=== PATIENT | female | born 1965 | race Caucasian/White ===

== ENCOUNTER 2017-01-12 22:08 | Emergency (ER) | payer OTHER ==
[~2017-01-12] VITALS: Ht 167.6 cm; Wt 145.1 kg
[2017-01-12 22:15] VITALS: BP_SYST 144
== END 2017-01-12 23:00 | disposition left against medical advice (07) ==
LOC: SED 22:08
DX: R05 Cough (principal); R51 Headache; Z53.21 Procedure and treatment not carried out due to patient leaving prior to being seen by health care provider

== ENCOUNTER 2017-02-21 06:27 | Emergency (ER) | payer OTHER ==
[~2017-02-21] VITALS: Ht 170.2 cm; Wt 149.7 kg
[~2017-02-21 06:27] MED LIST: PHE25 PO; STADOL; [UNRECOGNIZED DRUG - CODE]
[2017-02-21 06:31] VITALS: BP_SYST 153
[2017-02-21 07:15] VITALS: BP_SYST 153
== END 2017-02-21 07:15 | disposition home or self-care (01) ==
LOC: SED 06:27
DX: G43.909 Migraine, unspecified, not intractable, without status migrainosus (principal); J40 Bronchitis, not specified as acute or chronic; Z88.5 Allergy status to narcotic agent
CPT/HCPCS: 99283

== ENCOUNTER 2017-03-03 00:49 | Emergency (ER) | payer OTHER ==
[~2017-03-03] VITALS: Ht 170.2 cm; Wt 149.7 kg
[2017-03-03 01:00] VITALS: BP 126/70; PULSE 61; RESP 18; TEMP 97.6; O2SAT 96
--- NOTE | 2017-03-03 01:40 | NUR ---
Placed in room H1 . Side rails up. Report given to FOREST Rosario.
--- NOTE | 2017-03-03 01:45 | NUR ---
Patient complains of cough x 1 week with migraine headaches. Pain 7/10. Lungs clear in all peraza . Pain 4/10. No other complaints/injuries per patient or as noted. Will continue to monitor.
--- NOTE | 2017-03-03 01:47 | NUR ---
ER at bedside examining patient.
[2017-03-03 02:12] VITALS: BP 126/70; PULSE 61; RESP 18; TEMP 97.6; O2SAT 96
--- NOTE | 2017-03-03 02:12 | NUR ---
Patient given written and verbal discharge instructions and verbalizes understanding. ER MD discussed with patient the results and treatment provided. Patient in stable condition. ID arm band removed. Rx of Zithromax, Prednisone and Butorphanol Tartate given. Patient educated on pain management and to follow up with PMD in 2-3 days. Pain Scale 0/10 Opportunity for questions provided and answered.
== END 2017-03-03 02:12 | disposition home or self-care (01) ==
LOC: SED 00:49
DX: Z76.0 Encounter for issue of repeat prescription (principal); J40 Bronchitis, not specified as acute or chronic; G44.209 Tension-type headache, unspecified, not intractable; Z88.5 Allergy status to narcotic agent; F17.210 Nicotine dependence, cigarettes, uncomplicated
CPT/HCPCS: 71010; 99283

== ENCOUNTER 2017-03-04 18:05 | Emergency (ER) | payer OTHER ==
[~2017-03-04] VITALS: Ht 170.2 cm; Wt 154.2 kg
[2017-03-04 18:11] VITALS: BP 132/83; PULSE 81; RESP 18; TEMP 97.6; O2SAT 96
--- NOTE | 2017-03-04 18:14 | NUR ---
Pt placed to ER bed 07, report given to FOREST Quintanilla.
--- NOTE | 2017-03-04 18:15 | NUR ---
PRESENTS WITH 1 WEEK HISTORY OF PRODUCTINE COUGH WITH WHITE WORSE AT NIGHT. WAS HERE 3 DAYS AGO AND SAW THE DOCTOR AND GIVEN STEROIDS WHICH SHE IS TAKING AT HOME. LUNGS CLEAR. NO FEVER. NO SOB OR PAIN WITH INSPIRATION.
--- NOTE | 2017-03-04 18:21 | NUR ---
PEYTON CASPER IN TO PAT CALLAWAY.
[2017-03-04 18:33] VITALS: O2SAT 96
[2017-03-04 18:37] VITALS: BP 120/70; PULSE 87; RESP 20; TEMP 98.6
--- NOTE | 2017-03-04 18:37 | NUR ---
Patient given written and verbal discharge instructions and verbalizes understanding. ER MD discussed with patient the results and treatment provided. Patient in stable condition. ID arm band removed. Rx of TESSALON PEARLES AND COUGH SYRUP given. Patient educated on pain management and to follow up with PMD. Pain Scale . Opportunity for questions provided and answered. PT DISCHARGED TO [facility]. Addendum: 03/04/17 at 1841 by SIMRANCCUPTA PAIN SCALE 0/10
== END 2017-03-04 18:37 | disposition home or self-care (01) ==
LOC: SED 18:05
DX: J40 Bronchitis, not specified as acute or chronic (principal); R03.0 Elevated blood-pressure reading, without diagnosis of hypertension; F17.200 Nicotine dependence, unspecified, uncomplicated; E66.9 Obesity, unspecified; Z68.43 Body mass index [BMI] 50.0-59.9, adult; Z71.6 Tobacco abuse counseling; Z88.5 Allergy status to narcotic agent
CPT/HCPCS: 99283

== ENCOUNTER 2017-12-28 16:44 | Emergency (ER) | payer OTHER ==
[~2017-12-28] VITALS: Ht 170.2 cm; Wt 149.7 kg
[2017-12-28 16:44] VITALS: BP_SYST 148
== END 2017-12-28 17:20 | disposition left against medical advice (07) ==
LOC: SED 16:44
DX: G43.909 Migraine, unspecified, not intractable, without status migrainosus (principal); M25.511 Pain in right shoulder; Z53.21 Procedure and treatment not carried out due to patient leaving prior to being seen by health care provider

== ENCOUNTER 2018-09-17 20:12 | Emergency (ER) | payer OTHER ==
[~2018-09-17] VITALS: Ht 170.2 cm; Wt 158.8 kg
[2018-09-17 20:30] VITALS: BP_SYST 130
[2018-09-17 20:55] VITALS: BP_SYST 130
== END 2018-09-17 20:55 | disposition left against medical advice (07) ==
LOC: SED 20:12
DX: G43.909 Migraine, unspecified, not intractable, without status migrainosus (principal); Z88.6 Allergy status to analgesic agent; Z79.899 Other long term (current) drug therapy; Z53.21 Procedure and treatment not carried out due to patient leaving prior to being seen by health care provider

== ENCOUNTER 2020-02-26 21:51 | Emergency (ER) | payer OTHER ==
[~2020-02-26] VITALS: Ht 170.2 cm; Wt 140.6 kg
[2020-02-26 22:25] VITALS: BP_SYST 118
[2020-02-26] MEDS ORDERED: AMOXICILLIN 500 MG CAPSULE PO ONE (23:45)
[2020-02-27 00:57] VITALS: BP_SYST 126
== END 2020-02-27 00:56 | disposition home or self-care (01) ==
LOC: SED 21:51
DX: G43.901 Migraine, unspecified, not intractable, with status migrainosus (principal); Z88.6 Allergy status to analgesic agent; Z79.899 Other long term (current) drug therapy
CPT/HCPCS: 99283

== ENCOUNTER 2020-06-18 20:26 | Emergency (ER) | payer OTHER ==
[~2020-06-18] VITALS: Ht 172.7 cm; Wt 104.3 kg
[~2020-06-18 20:26] MED LIST changes: +ASPI-524 PO; +IBUP-1017 PO; +NAPR-1174 PO
[2020-06-18 20:42] VITALS: BP_SYST 101
[2020-06-18 21:05] VITALS: BP_SYST 101
== END 2020-06-18 21:05 | disposition home or self-care (01) ==
LOC: SED 20:26
DX: G43.909 Migraine, unspecified, not intractable, without status migrainosus (principal); Z76.0 Encounter for issue of repeat prescription; Z88.6 Allergy status to analgesic agent; Z79.899 Other long term (current) drug therapy
CPT/HCPCS: 99281

== ENCOUNTER 2020-06-24 00:13 | Emergency (ER) | payer OTHER, SELFPAY ==
[~2020-06-24] VITALS: Ht 170.2 cm; Wt 140.6 kg
[2020-06-24 00:25] VITALS: BP_SYST 135
[2020-06-24 01:25] VITALS: BP_SYST 135
== END 2020-06-24 01:25 | disposition home or self-care (01) ==
LOC: SED 00:13
DX: B34.9 Viral infection, unspecified (principal); Z79.899 Other long term (current) drug therapy; Z88.6 Allergy status to analgesic agent; Z20.822 Contact with and (suspected) exposure to COVID-19
CPT/HCPCS: 99283; C9803; U0003

== ENCOUNTER 2020-07-02 22:24 | Emergency (ER) | payer OTHER, SELFPAY ==
[~2020-07-02] VITALS: Ht 170.2 cm; Wt 140.6 kg
[2020-07-02 22:37] VITALS: BP_SYST 154
[2020-07-02 22:51] VITALS: BP_SYST 154
== END 2020-07-02 22:54 | disposition home or self-care (01) ==
LOC: SED 22:24
DX: G43.909 Migraine, unspecified, not intractable, without status migrainosus (principal); Z88.6 Allergy status to analgesic agent; Z79.899 Other long term (current) drug therapy; Z79.82 Long term (current) use of aspirin
CPT/HCPCS: 99283

== ENCOUNTER 2020-07-10 22:49 | Emergency (ER) | payer OTHER ==
[~2020-07-10] VITALS: Ht 170.2 cm; Wt 140.6 kg
[2020-07-10 23:00] VITALS: BP_SYST 138
--- NOTE | 2020-07-10 23:00 | NUR ---
PT TO BED 4 FOR EVALUATION
--- NOTE | 2020-07-10 23:05 | NUR ---
DR. SUTTON AT BEDSIDE TO EVALUATE PT STATUS
--- NOTE | 2020-07-10 23:05 | NUR ---
Patient came to ER with family. C/O left ear pain x 3 days. Patient had left ear pain for 3 days, no drainage. A/O,X4, left ear pain, pain rate 5/10, vss.
[2020-07-10 23:26] VITALS: BP_SYST 138
--- NOTE | 2020-07-10 23:26 | NUR ---
Patient given written and verbal discharge instructions and verbalizes understanding. ER MD discussed with patient the results and treatment provided. Patient in stable condition. ID arm band removed. Rx of Promethzine, Claritin and Augmentin given. Patient educated on pain management and to follow up with PMD. Pain Scale 3/10. Opportunity for questions provided and answered. Medication side effect fact sheet provided.
== END 2020-07-10 23:26 | disposition home or self-care (01) ==
LOC: SED 22:49
DX: J32.9 Chronic sinusitis, unspecified (principal); R09.81 Nasal congestion; Z79.899 Other long term (current) drug therapy
CPT/HCPCS: 99283

== ENCOUNTER 2020-07-20 22:09 | Emergency (ER) | payer OTHER ==
[~2020-07-20] VITALS: Ht 167.6 cm; Wt 140.6 kg
[2020-07-20 22:19] VITALS: BP_SYST 144
== END 2020-07-21 00:30 | disposition left against medical advice (07) ==
LOC: SED 22:09
DX: H92.09 Otalgia, unspecified ear (principal); Z53.21 Procedure and treatment not carried out due to patient leaving prior to being seen by health care provider

== ENCOUNTER 2020-08-07 21:09 | Emergency (ER) | payer OTHER ==
[~2020-08-07] VITALS: Ht 175.3 cm; Wt 133.8 kg
[2020-08-07 21:17] VITALS: BP_SYST 143
[2020-08-07 21:32] VITALS: BP_SYST 146
== END 2020-08-07 21:32 | disposition home or self-care (01) ==
LOC: SED 21:09
DX: G43.909 Migraine, unspecified, not intractable, without status migrainosus (principal)
CPT/HCPCS: 99283

== ENCOUNTER 2020-08-12 14:56 | Emergency (ER) | payer OTHER ==
[~2020-08-12] VITALS: Ht 170.2 cm; Wt 140.6 kg
[2020-08-12 14:56] VITALS: BP_SYST 161
--- NOTE | 2020-08-12 14:56 | NUR ---
BROUGHT BACK TO BED #2 AND TRIAGED. REPORT GIVEN TO MAI
--- NOTE | 2020-08-12 15:30 | NUR ---
pt became very anxious and requested to leave without being seen. Pt is alert and oriented. AMA paper signed.
[2020-08-12 15:39] VITALS: BP_SYST 161
--- NOTE | 2020-08-12 15:41 | NUR ---
Patient does not wish to proceed with medical care.. Patient given information related to possible complications, up to and including , which could occur as a result of leaving hospital at this time. Patient verbalizes understanding of risks involved leaving against medical advice. Patient has signed AMA form. Pt left before being seen.
== END 2020-08-12 15:41 | disposition left against medical advice (07) ==
LOC: SED 14:56
DX: R51.9 Headache, unspecified (principal); Z53.21 Procedure and treatment not carried out due to patient leaving prior to being seen by health care provider

== ENCOUNTER 2020-08-25 17:46 | Emergency (ER) | payer OTHER ==
[~2020-08-25] VITALS: Ht 170.2 cm; Wt 181.4 kg
[2020-08-25 17:52] VITALS: BP_SYST 165
[2020-08-25] MEDS ORDERED: IBUP-1971 PO (17:54)
[2020-08-25] MEDS ORDERED: ONDA-8 TL (17:54)
[2020-08-25] MEDS ORDERED: HYDR-3919 PO (18:06)
== END 2020-08-25 18:07 | disposition left against medical advice (07) ==
LOC: SED 17:46
DX: G43.909 Migraine, unspecified, not intractable, without status migrainosus (principal); Z79.899 Other long term (current) drug therapy
CPT/HCPCS: 99283

== ENCOUNTER 2020-09-13 16:36 | Emergency (ER) | payer OTHER ==
[~2020-09-13] VITALS: Ht 170.2 cm; Wt 140.6 kg
[~2020-09-13 16:36] MED LIST changes: +HYDR-3919 PO
[2020-09-13 16:53] VITALS: BP_SYST 152
[2020-09-13 18:23] VITALS: BP_SYST 152
== END 2020-09-13 18:23 | disposition home or self-care (01) ==
LOC: SED 16:36
DX: G43.909 Migraine, unspecified, not intractable, without status migrainosus (principal); H69.92 Unspecified Eustachian tube disorder, left ear; F17.210 Nicotine dependence, cigarettes, uncomplicated; Z79.899 Other long term (current) drug therapy
CPT/HCPCS: 99283

== ENCOUNTER 2020-11-30 16:02 | Emergency (ER) | payer OTHER ==
[~2020-11-30] VITALS: Ht 170.2 cm; Wt 140.6 kg
[2020-11-30 16:12] VITALS: BP_SYST 148
[2020-11-30] MEDS ORDERED: DEC4 PO (16:38)
== END 2020-11-30 16:50 | disposition home or self-care (01) ==
LOC: SED 16:02
DX: G43.909 Migraine, unspecified, not intractable, without status migrainosus (principal); Z79.899 Other long term (current) drug therapy
CPT/HCPCS: 99283

== ENCOUNTER 2020-12-24 01:59 | Emergency (ER) | payer OTHER ==
[~2020-12-24] VITALS: Ht 170.2 cm; Wt 140.6 kg
[~2020-12-24 01:59] MED LIST changes: +DEC4 PO
[2020-12-24 02:25] VITALS: BP_SYST 180
[2020-12-24] MEDS ORDERED: NEOM10SO7 RIGHT EAR (06:23)
[2020-12-24] MEDS ORDERED: BENZ-16 PO (06:23)
[2020-12-24] MEDS ORDERED: ALBMDI INH (06:23)
== END 2020-12-24 02:35 | disposition left against medical advice (07) ==
LOC: SED 01:59
DX: R05 Cough (principal); R09.81 Nasal congestion; Z53.21 Procedure and treatment not carried out due to patient leaving prior to being seen by health care provider

== ENCOUNTER 2020-12-24 04:36 | Emergency (ER) | payer OTHER ==
[~2020-12-24] VITALS: Ht 167.6 cm; Wt 95.3 kg
[2020-12-24 04:44] VITALS: BP_SYST 147
[2020-12-24] MEDS ORDERED: ALBMDI INH (06:23)
[2020-12-24] MEDS ORDERED: NEOM10SO7 RIGHT EAR (06:23)
[2020-12-24] MEDS ORDERED: BENZ-16 PO (06:23)
[2020-12-24 06:30] VITALS: BP_SYST 147
== END 2020-12-24 06:30 | disposition home or self-care (01) ==
LOC: SED 04:36
DX: J06.9 Acute upper respiratory infection, unspecified (principal); H60.91 Unspecified otitis externa, right ear; Z79.899 Other long term (current) drug therapy
CPT/HCPCS: 99283

== ENCOUNTER 2021-02-01 23:46 | Emergency (ER) | payer OTHER ==
[~2021-02-01] VITALS: Ht 167.6 cm; Wt 145.1 kg
[2021-02-01 23:46] VITALS: BP_SYST 157
[~2021-02-01 23:46] MED LIST changes: +ALBMDI INH; +BENZ-16 PO; +NEOM10SO7 RIGHT EAR
--- NOTE | 2021-02-01 23:55 | NUR ---
Patient to ER bed 7 to gown for evaluation. Side rails up. Report given to nikolas.
--- NOTE | 2021-02-01 23:56 | NUR ---
Came in ER ambulatory from home this 55 year old female, AAOX4, breathing spontaneously at room air, not in distress noted. With chief complaints of Headache with light sensitivity, rt toe bug bite today, known with migraine and arthritis, no known allergy, vital signs stable
--- NOTE | 2021-02-02 00:55 | NUR ---
ER Dr. Misty Gutiérrez at bedside examining patient.
[2021-02-02] MEDS ORDERED: BACI15OI13 TP (01:21)
[2021-02-02] MEDS ORDERED: CEPH250C PO (01:22)
[2021-02-02 01:27] VITALS: BP_SYST 142
--- NOTE | 2021-02-02 01:27 | NUR ---
Patient given written and verbal discharge instructions and verbalizes understanding. ER MD discussed with patient the results and treatment provided. Patient in stable condition. ID arm band removed. Rx of bacitracin ointment, cephalexin and nasal spray given. Patient educated on pain management and to follow up with PMD. Pain Scale 0/10. Opportunity for questions provided and answered. Medication side effect fact sheet provided.
== END 2021-02-02 01:27 | disposition home or self-care (01) ==
LOC: SED 23:46
DX: L03.115 Cellulitis of right lower limb (principal); G43.909 Migraine, unspecified, not intractable, without status migrainosus; Z79.899 Other long term (current) drug therapy
CPT/HCPCS: 99283

== ENCOUNTER 2021-05-05 19:04 | Emergency (ER) | payer OTHER ==
[~2021-05-05] VITALS: Ht 170.2 cm; Wt 145.1 kg
[~2021-05-05 19:04] MED LIST changes: +BACI15OI13 TP; +CEPH250C PO
[2021-05-05 19:50] VITALS: BP_SYST 153
--- NOTE | 2021-05-05 20:04 | NUR ---
ER examining patient.
--- NOTE | 2021-05-05 20:10 | NUR ---
Pt BIB family to ED with history of migraine headaches taking Butorphanol Tartrate for pain control presenting to the ED for acute onset left-sided headache. Symptoms are moderate-severe, 7/10, throbbing, associated with nausea. Denies fever, chills, cough, vomiting. Denies head injury/trauma. Denies LOC. States she has been taking Naprosyn with no significant improvement. Patient adds she ran out of her Butorphanol Tartrate and is requesting a refill of it.
[2021-05-05] MEDS ORDERED: NAPR-1172 PO (20:20)
[2021-05-05] MEDS ORDERED: PROM5SYR PO (20:21)
[2021-05-05 20:39] VITALS: BP_SYST 153
--- NOTE | 2021-05-05 20:39 | NUR ---
Patient given written and verbal discharge instructions and verbalizes understanding. ER MD discussed with patient the results and treatment provided. Patient in stable condition. ID arm band removed. Rx of Naprosyn and Promethazine with Codeine given. Patient educated on pain management and to follow up with PMD. Pain Scale 0/10 Opportunity for questions provided and answered. Medication side effect fact sheet provided.
== END 2021-05-05 20:39 | disposition home or self-care (01) ==
LOC: SED 19:04
DX: G43.909 Migraine, unspecified, not intractable, without status migrainosus (principal); Z79.899 Other long term (current) drug therapy
CPT/HCPCS: 99283

== ENCOUNTER 2021-06-07 13:16 | Emergency (ER) | payer OTHER, SELFPAY ==
[~2021-06-07] VITALS: Ht 167.6 cm; Wt 149.7 kg
[~2021-06-07 13:16] MED LIST changes: +NAPR-1172 PO; +PROM5SYR PO
[2021-06-07 13:31] VITALS: BP_SYST 118
== END 2021-06-07 13:40 | disposition left against medical advice (07) ==
LOC: SED 13:16
DX: R05.9 Cough, unspecified (principal); Z53.21 Procedure and treatment not carried out due to patient leaving prior to being seen by health care provider

== ENCOUNTER 2021-06-15 15:49 | Emergency (ER) | payer OTHER, SELFPAY ==
[~2021-06-15] VITALS: Ht 167.6 cm; Wt 148.8 kg
--- NOTE | 2021-06-15 15:50 | NUR ---
Patient to ER bed TENT 1 to gown for evaluation. Side rails up.
--- NOTE | 2021-06-15 15:52 | NUR ---
ER DR. LEIJA AT THE BEDSIDE
[2021-06-15 16:00] VITALS: BP_SYST 168
--- NOTE | 2021-06-15 16:00 | NUR ---
PT CAME IN C/O [place] STARTING TODAY WITH COUGH. PT IS AAOX4, VSS, AMBULATORY
[2021-06-15] MEDS ORDERED: ACET325T53 PO (16:41)
[2021-06-15] MEDS ORDERED: ALBMDI INH (16:41)
[2021-06-15] MEDS ORDERED: AMOX-426 PO (16:41)
--- NOTE | 2021-06-15 17:00 | NUR ---
Patient given written and verbal discharge instructions and verbalizes understanding. ER MD discussed with patient the results and treatment provided. Patient in stable condition. ID arm band removed. Rx of TYLENOL, ALBUTEROL AND AUGMENTIN given. Patient educated on pain management and to follow up with PMD. Pain Scale 0/10. Opportunity for questions provided and answered. Medication side effect fact sheet provided.
[2021-06-15 17:27] VITALS: BP_SYST 168
== END 2021-06-15 17:00 | disposition home or self-care (01) ==
LOC: SED 15:49
DX: R05.9 Cough, unspecified (principal); R51.9 Headache, unspecified; Z20.822 Contact with and (suspected) exposure to COVID-19
CPT/HCPCS: 99283

== ENCOUNTER 2021-06-20 17:18 | Emergency (ER) | payer OTHER, SELFPAY ==
[~2021-06-20 17:18] MED LIST changes: +ACET325T53 PO; +AMOX-426 PO
--- NOTE | 2021-06-20 19:10 | NUR ---
Called patient, no answer. Patient left without being seen. No further treatment provided. ER MD aware
== END 2021-06-20 19:10 | disposition left against medical advice (07) ==
LOC: SED 17:18
DX: G43.909 Migraine, unspecified, not intractable, without status migrainosus (principal); Z53.21 Procedure and treatment not carried out due to patient leaving prior to being seen by health care provider

== ENCOUNTER 2021-07-08 14:53 | Emergency (ER) | payer OTHER, SELFPAY ==
[~2021-07-08] VITALS: Ht 167.6 cm; Wt 145.1 kg
--- NOTE | 2021-07-08 15:35 | NUR ---
Pt triaged in waiting room; awaiting bed placement.
--- NOTE | 2021-07-08 15:36 | NUR ---
Dr Lewis assessed patient in waiting room.
[2021-07-08 15:37] VITALS: BP_SYST 131
[2021-07-08] MEDS ORDERED: KETOROLAC TROMETHAMINE 30 MG VIAL IM ONE (15:45)
[2021-07-08] MEDS ORDERED: DEXAMETHASONE SOD PHOSPHATE 10 MG/ML VIAL PO ONE (15:45)
--- NOTE | 2021-07-08 17:11 | NUR ---
Pt awake, alert and oriented x 3. Awaiting Dr Lewis to discuss prescription status. Does not want medication at this time. Came in re migraine. PMH migraines. Denies dizziness or blurry vision. Reports is out of migraine medicatin she normally takes. Did not want to be in a room, bed, or main ED; just wants rx. Awaiting MD for dispo/dc.
--- NOTE | 2021-07-08 17:25 | NUR ---
Dr Lewis discharged patient from waiting room after discussing prescription availability.
[2021-07-08 18:00] VITALS: BP_SYST 131
== END 2021-07-08 18:00 | disposition home or self-care (01) ==
LOC: SED 14:53
DX: G43.909 Migraine, unspecified, not intractable, without status migrainosus (principal); M54.31 Sciatica, right side
CPT/HCPCS: 99281; 99283

== ENCOUNTER 2021-07-24 12:49 | Emergency (ER) | payer OTHER, SELFPAY ==
[~2021-07-24] VITALS: Ht 167.6 cm; Wt 195.0 kg
[2021-07-24 12:50] VITALS: BP_SYST 134
== END 2021-07-24 14:55 | disposition left against medical advice (07) ==
LOC: SED 12:49
DX: R51.9 Headache, unspecified (principal); Z53.21 Procedure and treatment not carried out due to patient leaving prior to being seen by health care provider

== ENCOUNTER 2022-01-11 18:16 | Emergency (ER) | payer OTHER ==
[~2022-01-11] VITALS: Ht 167.6 cm; Wt 149.7 kg
[2022-01-11 18:16] VITALS: BP_SYST 146
--- NOTE | 2022-01-11 18:16 | NUR ---
BROJOSLYNGHT INTO TRIAGE TENT AND TRIAGED. AWAITING ER BED
--- NOTE | 2022-01-11 18:30 | NUR ---
PT STATES SHE HAS 3 DAYS WITH COUGH, CONGESTION, AND MIGRAINES.
--- NOTE | 2022-01-11 19:10 | NUR ---
REPORT GIVEN TO BERTRAM
[2022-01-11] MEDS ORDERED: predniSONE 20 MG TABLET PO ONE (19:45)
[2022-01-11] MEDS ORDERED: IPRATROPIUM/ALBUTEROL SULFATE 3 ML AMPUL.NEB (DUONEB) INH ONE (19:45)
--- NOTE | 2022-01-11 19:48 | NUR ---
went to tent but no one there. Patient left without being seeing by Dr. Lewis Per planetarium technician Caroline was getting covid test but patient refused and not wanting to wait.
--- NOTE | 2022-01-11 19:50 | NUR ---
Patient left without being seen.
== END 2022-01-11 19:50 | disposition left against medical advice (07) ==
LOC: SED 18:16
DX: R05.9 Cough, unspecified (principal); R09.81 Nasal congestion; R51.9 Headache, unspecified; Z53.21 Procedure and treatment not carried out due to patient leaving prior to being seen by health care provider